=== PATIENT | female | born 1950 | race Caucasian/White ===

== ENCOUNTER 2018-03-12 06:57 | Inpatient (IN) | payer MEDICARE, BC ==
--- NOTE | 2018-03-04 19:46 | HP ---
HISTORY AND PHYSICAL: DATE OF ADMISSION/SURGERY: 03/12/18 DATE OF OFFICE VISIT: 03/04/18 SURGEON: Nat Bliss MD * (DICTATED BY SWETA TANG) PROCEDURE: Right total knee arthroplasty. CHIEF COMPLAINT: Right knee pain. HISTORY OF PRESENT ILLNESS: Ms. Fuentes is a 68-year-old female with complaints of right knee pain. She has failed conservative treatment and elected to proceed with a right total knee arthroplasty, which is scheduled for 03/12/18. PAST MEDICAL HISTORY: Hypertension, diabetes, high cholesterol, depression, and Mrgnmzy-Upgok-Wyvyg. PAST SURGICAL HISTORY: Bilateral carpal tunnel release and . CURRENT MEDICATIONS: 1. Meclizine 25 mg every 8 hours as needed. 2. Pantoprazole sodium 20 mg daily. 3. Januvia 100 mg 1 tab every day. 4. Atorvastatin calcium 10 mg daily. 5. Losartan potassium 100 mg daily. 6. Benzonatate 100 mg 3 times a day as needed for cough. 7. Citalopram hydrobromide 10 mg daily. 8. Hydrochlorothiazide 25 mg daily. 9. Metformin 500 mg 2 tabs twice daily. 10. Aspirin 81 mg daily. 11. Ibuprofen as needed. 12. Zinc 30 mg daily. ALLERGIES: To SULFA and TETANUS. FAMILY HISTORY: Diabetes, coronary artery disease, cancer, rheumatoid arthritis. SOCIAL HISTORY: She is a 68-year-old female. She lives with her . She does not smoke or use drugs. Uses occasional alcohol. REVIEW OF SYSTEMS: A complete 14-point review of systems was reviewed with the patient. It was positive for diabetes and GERD. She denies a history of DVT, PE, hepatitis, HIV, or anesthesia problems. PHYSICAL EXAMINATION GENERAL: She is a well-developed, well-nourished, in no acute distress. VITAL SIGNS: She stands 62 inches tall, weighs 209 pounds. Blood pressure 140/ 82, heart rate 60. HEENT: Normocephalic, atraumatic. NECK: Supple. No palpable lymph nodes. PULMONARY: Lungs are clear to auscultation bilaterally. CARDIO: Regular rate and rhythm. Strong S1, S2. ABDOMEN: Soft, nontender, nondistended. NEUROLOGICAL: She is alert and oriented x3. MUSCULOSKELETAL: Right lower extremity: Skin is intact. There are no open wounds or abrasions. There is a moderate joint effusion. There is a 15-degree valgus deformity. Range of motion is 10 to 120 degrees with patellofemoral crepitus. She has a 2+ dorsalis pedis pulse. She has a footdrop on the right side and has very minimal dorsiflexion. She has intact sensation. ASSESSMENT AND PLAN: Ms. Fuentes is a 68-year-old female with end-stage osteoarthritis of the right knee. She has failed conservative treatment and elected to proceed with a right total knee arthroplasty. The surgery is scheduled for 03/12/[address] Bliss discussed the risks and benefits of the surgery at today's visit and all of her questions were answered. She will follow up with Dr. Bliss 2 weeks after the surgery. SWETA TANG [id number]/[facility] #: [id number] [place]
[~2018-03-12 06:57] MED LIST: Acetaminophen TAB* 325 MG PO ONE; Buffered Lidocaine 0.9% SYRIN* 5 ML/SYR SYRINGE INTRADERM ONE; Gabapentin CAP(*) 300 MG PO ONE; Tranexamic Acid 1,000 MG in NS 0.9% 50 ML* (outpatient use) IV SCH; celeCOXIB CAP* 200 MG PO ONE
[2018-03-12] MEDS ORDERED: Bupivacaine 0.5% SDV PF* 30ML VIAL ONE ×2 (07:03→13:14)
[2018-03-12] MEDS ORDERED: Acetaminophen TAB* 325 MG ONE (07:08)
[2018-03-12] MEDS ORDERED: celeCOXIB CAP* 100 MG ONE (07:08)
[2018-03-12] MEDS ORDERED: Gabapentin CAP(*) 300 MG ONE (07:08)
[2018-03-12] MEDS ORDERED: ceFAZolin 2 GM PREMIX in ORs 2 GM/50 ML BAG IVPB ONE (07:08)
[2018-03-12] MEDS ORDERED: fentaNYL* 50 MCG/ML 2 ML VIAL (100 MCG VIAL) ONE (08:19)
[2018-03-12] MEDS ORDERED: Midazolam* 1 MG/ML 2 ML VIAL (2 MG) ONE (08:19)
[2018-03-12] MEDS ORDERED: Lidocaine 2% PF * 5 ML VIAL ONE (09:23)
[2018-03-12] MEDS ORDERED: EPHEDrine (Pressors)* 50 MG/ML VIAL ONE (09:41)
[2018-03-12] MEDS ORDERED: diPHENhydraMINE IV* 50 MG/ML 1 ml VIAL (BENADRYL) ONE (10:00)
[2018-03-12] MEDS ORDERED: DiMENhydriNATE IV* 50 MG/ML VIAL IV PUSH PRN (11:34)
[2018-03-12] MEDS ORDERED: fentaNYL* 50 MCG/ML 2 ML VIAL (100 MCG VIAL) IV PRN (11:34)
[2018-03-12] MEDS ORDERED: HYDROcodone/ACETAMIN 5-325 MG* 1 TAB PO PRN ×2 (11:34)
[2018-03-12] MEDS ORDERED: HYDROmorphone INJ1* 1 MG/ML SYRINGE IV PRN (11:34)
[2018-03-12] MEDS ORDERED: Acetaminophen TAB* 325 MG PO PRN ×2 (11:34→11:49)
[2018-03-12] MEDS ORDERED: Naloxone* 0.4 MG/ML 1 ML VIAL IV PRN (11:34)
[2018-03-12] MEDS ORDERED: Ondansetron INJ* 2 MG/ML VIAL IV PRN ×2 (11:34→11:49)
[2018-03-12] MEDS ORDERED: diPHENhydraMINE IV* 50 MG/ML 1 ml VIAL (BENADRYL) IV PRN ×2 (11:34→11:49)
[2018-03-12] MEDS ORDERED: PROCHLORPERAZINE INJ 5 MG/ML 2 ML VIAL IV PRN (11:34)
[2018-03-12] MEDS ORDERED: ROPIVACAINE 5 MG/ML 30 ML BTL (0.5%) ONE (11:43)
[2018-03-12] MEDS ORDERED: Bisacodyl SUPP* 10 MG SUPP PR PRN (11:49)
[2018-03-12] MEDS ORDERED: Magnesium Hydroxide LIQ* 30 ML UDC PO PRN (11:49)
[2018-03-12] MEDS ORDERED: Morphine VIAL* 4 MG/ML VIAL (1 ml vial) IV PRN (11:49)
[2018-03-12] MEDS ORDERED: HYDROcodone/ACETAMIN 5-325 MG* 1 TAB ONE (12:15)
--- NOTE | 2018-03-12 12:46 | RAD ---
HISTORY: s/p RTKA COMPARISONS: March 04, 2018 VIEWS: 2 , Frontal and lateral views of the right knee FINDINGS: BONE DENSITY: Normal. BONES: The patient is status post right knee arthroplasty. There is no hardware failure or osteolysis. JOINTS: The patient is status post right knee arthroplasty ALIGNMENT: There is no dislocation. SOFT TISSUES: Unremarkable. OTHER FINDINGS: None. IMPRESSION: STATUS POST RIGHT KNEE ARTHROPLASTY
[2018-03-12] MEDS ORDERED: Bupivacaine-MPF SPINAL* 7.5 MG/ML - 2ML AMP ONE (13:14)
[2018-03-12] MEDS ORDERED: Propofol* 10 MG/ML 20 ML BTL IV PUSH ONE (13:14)
[2018-03-12] MEDS ORDERED: Morphine VIAL* 10 MG/ML 1 ML VIAL ONE (13:18)
[2018-03-12] MEDS: oxyCODONE TAB* 5 MG TAB PO PRN ×2 (14:13→20:16)
--- NOTE | 2018-03-12 15:32 | PN ---
Progress Note - Progress Note Date of Service: 03/12/18 Note: resting comfortably in bed. Pain controlled with current pain meds. able to move toes/ 2+ DP pulse; hx of CMT with right foot drop. denies SOB/ calf pain; dressing c/d/i
[2018-03-12] MEDS ORDERED: Dextrose 50% Syringe 50 ML* 25 GM/50 ML SYRINGE IV PUSH PRN (16:35)
[2018-03-12] MEDS: oxyCODONE/Acetamin 5/325 MG* TAB PO PRN ×2 (16:41→23:23)
[2018-03-12] MEDS: ceFAZolin 1 GM in Dextrose (*) 1 GM/50 ML BAG IVPB SCH (16:42)
[2018-03-12] MEDS ORDERED: Warfarin TAB(*) 6 MG PO ONE (17:00)
[2018-03-12] MEDS: Insulin LISPRO* 1 UNITS UNIT SUBCUT SCH (17:33)
[2018-03-12] MEDS: Magnesium Hydroxide LIQ* 30 ML UDC PO SCH (20:18)
[2018-03-12] MEDS: Docusate CAP* 100 MG PO SCH (20:19)
--- NOTE | 2018-03-12 23:36 | CONS ---
[facility] MEDICINE CONSULTATION REPORT: DATE OF CONSULT: 03/12/18 PROVIDER: Christina Squires NP ATTENDING PHYSICIAN: Dr. Bliss. CONSULTING PHYSICIAN: Dr. Opal March (dictated by Christina Squires NP). REASON FOR CONSULT: Co-management of chronic medical conditions, hypertension, diabetes. HISTORY OF PRESENT ILLNESS: Ms. Fuentes is a 68-year-old female with a past medical history significant for hypertension, diabetes, hyperlipidemia, depression and Gegxuoj-Ofzxh-Xempn, who has been treated for complaints of right knee pain. She failed conservative treatment and elected to proceed with a right total knee arthroplasty, which was scheduled for today, 03/12/18. She denies any recent sick contacts. Denies any fever or chills. She denies any chest pain or shortness of breath. Denies any nausea, vomiting, or diarrhea. Denies any urinary frequency or dysuria. PAST MEDICAL HISTORY: Significant for: 1. Hypertension. 2. Diabetes. 3. High cholesterol. 4. Depression. 5. Uujaudi-Yzkkq-Qdukn. PAST SURGICAL HISTORY: 1. Bilateral carpal tunnel. 2. x1. CURRENT MEDICATIONS: 1. Meclizine 25 mg p.o. q.8 hours as needed. 2. Pantoprazole 20 mg p.o. daily. 3. Januvia 100 mg 1 tablet p.o. daily. 4. Atorvastatin 10 mg p.o. daily. 5. Losartan potassium 100 mg p.o. daily. 6. Benzonatate 100 mg t.i.d. as needed for cough. 7. Citalopram 10 mg p.o. daily. 8. Hydrochlorothiazide 25 mg p.o. q.a.m. 9. Metformin 500 mg 2 tablets twice daily. 10. Aspirin 81 mg daily. 11. Ibuprofen as needed. 12. Zinc 30 mg p.o. daily. ALLERGIES: She has an allergy to SULFA and TETANUS. FAMILY HISTORY: Father and mother with a history of diabetes. Father with a history of coronary artery disease. Mother with pancreatic cancer and mother with osteoarthritis. SOCIAL HISTORY: She is a 68-year-old female. She lives with her . She does not smoke or use any illicit drugs. She does report drinking 2 beers daily. Surrogate decision maker in the event the patient is unable to make her own decision is her , Alexis Fuentes. His phone number is [phone]. REVIEW OF SYSTEMS: General: There was no fever. There was no unintended weight loss. Cardiac: No chest pain or edema. Respiratory: Denies any cough or congestion. Denies any shortness of breath or orthopnea. GI: No nausea, vomiting, or diarrhea. No abdominal pain. : No hematuria or dysuria. ENT: No dysphagia. Neuro: No focal weakness or sensory loss. Psych: No depression or anxiety. Eyes: No visual complaints. Skin: No rashes or open lesions. PHYSICAL EXAM: Vitals: Blood pressure was 119/64, heart rate 54, respirations 18, O2 saturation 95% to 92% on room air, temperature was 98.0. LABORATORY DATA: WBCs on 02/24/18 were 8.3, RBCs were 4.81, hemoglobin 13.6, hematocrit was 40, platelet count was 199. INR on 03/04/18 was 0.93. Sodium on 02/24/18 was 138, potassium was 3.9, chloride was 100, carbon dioxide was 28 , BUN was 15, creatinine 0.66. Urine was positive for leukocyte esterase, urine wbc's were +2, urine rbc's were 3+, and urine squamous epithelial cells were present, bacteria was absent. The rest of the urinalysis was within normal limits. IMPRESSION AND PLAN: Ms. Fuentes is a 68-year-old female with a past medical history of hypertension, diabetes, hyperlipidemia, depression, who presented to [facility] – [place] for an elective right total knee arthroplasty with Dr. Bliss. In the immediate postoperative period, she has no complaints. Our recommendations are as follows: 1. Status post right total knee arthroplasty. Management per Orthopedics. PT/ OT per Orthopedics. 2. Hypertension. I would continue her losartan 100 mg p.o. daily. I would hold her hydrochlorothiazide at this time and resume when able when blood pressure is stable. 3. Diabetes. I would hold her metformin and Januvia at this time. We will start her on lispro sliding scale and Accu-Cheks a.c. She can resume her previous home diabetic medications on discharge. 4. Hyperlipidemia. She should continue on her atorvastatin as previously prescribed. 5. DVT prophylaxis: Per Orthopedics. 6. Code status: She is a full code. TIME SPENT: Time spent on this consultation was 45 minutes, half of that time was spent with the patient reviewing events leading thus far to her hospitalization, performing physical exam, and reviewing my plan of care. I have discussed this with my attending, Dr. Opal March; she is in agreement with my plan. CHRISTINA SQUIRES, HOME HEALTH CNA [id number]/[facility] #: [id number] [place]
[2018-03-13] MEDS: oxyCODONE TAB* 5 MG TAB PO PRN ×3 (00:38→11:44)
[2018-03-13] MEDS: ceFAZolin 1 GM in Dextrose (*) 1 GM/50 ML BAG IVPB SCH ×2 (00:46→08:57)
[2018-03-13] MEDS: oxyCODONE/Acetamin 5/325 MG* TAB PO PRN ×3 (03:49→14:01)
[2018-03-13 05:38] LABS: Hematocrit 33 % (35-47); Hemoglobin 11.2 g/dl (12.0-16.0); Mean Platelet Volume 8.7 um3 (7.4-10.4); Platelet Count 174 10^3/ul (150-450)
[2018-03-13 05:45] LABS: INR 1.12 (0.77-1.02)
[2018-03-13 05:57] LABS: EGFR Non-African American 95.7 (>60)
[2018-03-13 08:05] VITALS: BP 122/73
[2018-03-13] MEDS: Docusate CAP* 100 MG PO SCH (08:58)
[2018-03-13] MEDS: Insulin LISPRO* 1 UNITS UNIT SUBCUT SCH ×2 (08:58→11:43)
[2018-03-13] MEDS ORDERED: Vitamin THERAPEUTIC TAB PO SCH (09:00)
[2018-03-13] MEDS ORDERED: Atorvastatin* 10 MG TAB PO SCH (09:00)
[2018-03-13] MEDS ORDERED: Losartan TAB* 25 MG PO SCH (09:00)
[2018-03-13] MEDS: Magnesium Hydroxide LIQ* 30 ML UDC PO SCH (09:05)
[2018-03-13] MEDS ORDERED: Omeprazole CAP* 20 MG PO SCH (11:00)
--- NOTE | 2018-03-13 11:15 | PN ---
Progress Note - Progress Note Date of Service: 03/13/18 SOAP: Subjective: [] Objective: [] Assessment: [] Plan: []
--- NOTE | 2018-03-13 11:16 | PN ---
Progress Note - Progress Note Date of Service: 03/13/18 SOAP: Subjective: []Patient seen OOB in chair, doing well. Pain well controlled, Denies N/V or dizziness. Feels ready to go home this afternoon after PT. Objective: [] Vital Signs Temp 97.5 F 03/13/18 03:42 Pulse 50 03/13/18 08:01 Resp 20 03/13/18 09:43 BP 122/73 03/13/18 08:01 Pulse Ox 96 03/13/18 08:01 Intake & Output 03/12/18 03/13/18 03/13/18 18:59 06:59 18:59 Intake Total 1660 1335 Output Total 325 3045 175 Balance 1335 -1710 -175 Weight 207 lb Intake: IV Fluids 1300 135 ABX - CEFAZOLIN 115 LR 1300 20 Oral 360 1200 Output: Urine 125 175 Sims 200 3045 Laboratory Results - last 24 hr 03/12/18 03/12/18 03/13/18 14:19 17:16 05:29 Hgb 11.2 L Hct 33 L Plt Count 174 MPV 8.7 INR (Anticoag Therapy) Sodium Potassium Chloride Carbon Dioxide Anion Gap BUN Creatinine Est GFR ( Amer) Est GFR (Non-Af Amer) BUN/Creatinine Ratio Glucose POC Glucose (mg/dL) 175 H 260 H Calcium 03/13/18 03/13/18 03/13/18 05:29 05:29 08:03 Hgb Hct Plt Count MPV INR (Anticoag Therapy) 1.12 H Sodium 136 Potassium 3.7 Chloride 100 L Carbon Dioxide 31 Anion Gap 5 BUN 14 Creatinine 0.62 Est GFR ( Amer) 115.8 Est GFR (Non-Af Amer) 95.7 BUN/Creatinine Ratio 22.6 H Glucose 163 H POC Glucose (mg/dL) 157 H Calcium 8.7 Right knee DENISSE C/D/I calf NT and soft +DF/PF right ankle sensation intact distally RLE Assessment: []s/p RTK POD #1 Plan: []PT/OT WBAT RLE Coumadin with Lovenox bridge, 8 mg today before discharge home Dressing change this afternoon before discharge, 4x4s and DENISSE Follow up 10-14 days as scheduled with Dr. Bliss
[2018-03-13] MEDS ORDERED: Enoxaparin(*) 40 MG/0.4 ML SYR SUBCUT SCH (12:00)
[2018-03-13] MEDS ORDERED: Scopolamine 1.5 mg* PATCH TRANSDERM SCH (12:00)
[2018-03-13] MEDS ORDERED: Warfarin TAB(*) 4 MG PO ONE (15:00)
[2018-03-13] MEDS ORDERED: Pantoprazole TAB (NF) 20 MG TAB PO SCH (21:00)
--- NOTE | 2018-03-13 23:08 | OP ---
OPERATIVE REPORT: DATE OF OPERATION: 03/12/18 DATE OF : 50 SURGEON: Nat Bliss MD SHOOTER'S HELPER: SWTEA Jack Ms. did help throughout the procedure with preparation of the leg, wound retraction, manipulation of the knee and wound closure. ANESTHESIOLOGIST: Dr. Higgins. ANESTHESIA: Spinal. PRE-OP DIAGNOSIS: Severe end-stage degenerative osteoarthritis of the right knee joint. POST-OP DIAGNOSIS: Severe end-stage degenerative osteoarthritis of the right knee joint. OPERATIVE PROCEDURE: Right total knee arthroplasty. COMPLICATIONS: None. TOURNIQUET TIME: 44 minutes. SPECIMEN: Bone and cartilage from the right knee joint sent to pathology. ESTIMATED BLOOD LOSS: 200 cc. HARDWARE USED: This is Wu and Nephew cemented total knee arthroplasty hardware. For the femur, a right size 4 Legion narrow posterior stabilized femoral component. For the tibia, size 3 right tibial base plate Sabine II. For the insert, a 9 mm posterior stabilized Sabine II, size 3-4 and for the patella a 29 mm 7.5 thickness 3-peg all-poly patella. BRIEF HISTORY/INDICATION: Mr. Fuentes is a 68-year-old female with years of increasingly severe valgus deformity and osteoarthritis causing pain in the right knee. She failed conservative treatment with brace wear, ambulatory assistive devices, physical therapy, intra-articular injections and anti- inflammatories. Due to continued pain and decreased quality of life, she elected to undergo right total knee arthroplasty. Radiographs showed bone-on- bone arthritis of the hip. Informed consent was obtained from the patient. She understood the risks of the surgery included, but were not limited to bleeding, infection, damage to nearby structures, continued pain, need for further surgery, intraoperative fracture, nerve palsy, hardware failure or loosening, knee stiffness, loss of motion, stroke, heart attack, blood clot, and . She wished to proceed. INTRAOPERATIVE FINDINGS: Intraoperatively, the patient was noted to have severe end-stage arthritis with tricompartmental complete loss of cartilage. She had lateral femoral condylar hypoplasia. DESCRIPTION OF PROCEDURE: Ms. Fuentes was identified in the preanesthesia unit. Her right lower extremity was marked as the correct operative side. Informed consent was signed and placed in the chart. The patient was taken to the operating room and placed under spinal anesthesia. A Sims catheter was placed. A tourniquet was placed on the right thigh. Right lower extremity was prepped and draped in the usual sterile fashion. Preop time-out was made to correctly identify the patient's side and site. Appropriate perioperative antibiotics were given within one hour of incision. Tourniquet was inflated until tourniquet time for this procedure was 44 minutes. A midline incision was made with a 10 blade and carried down to the extensor mechanism. A new 10 blade was used to make a standard medial parapatellar arthrotomy. Patella was subluxed laterally. Electrocautery was used to subperiosteally elevate soft tissue off the superomedial tibia to the mid sagittal plane. The knee was flexed up. Anterior horn of the lateral meniscus and ACL were sharply released. A drill was used to enter the distal femur. Intramedullary distal femoral cutting guide was pinned on the distal femur. Oscillating saw was used to make the distal femoral cut. Next, the external rotation guide was pinned on the distal femur. The distal femur was sized to a size 4. Size 4 multi-cutting jig was pinned on the distal femur. Oscillating saw was used to make the appropriate 4 chamfer cuts. Next, PCL was completely released. The tibia was subluxed anteriorly. Extramedullary tibial cutting guide was pinned on the proximal tibia. Oscillating saw was used to make the proximal tibial cut perpendicular to the mechanical axis of the tibia. The tibial bone was carefully removed. The knee was brought out into full extension. A spacer block had good fit with the knee in full extension. There was medial and lateral ligamentous balancing. Flexion and extension gaps were well balanced. The knee was flexed up. Lamina winder tender was placed both medially and laterally. Any remaining meniscus was carefully removed using electrocautery. Curved osteotome was used to remove any posterior osteophytes. Tibial tray and drop kathrin were placed and once again confirmed a satisfactory tibial cut. A size 4 right narrow femoral trial was then impacted onto the distal femur and had good fit. The box for the posterior stabilized implant was prepared using a reamer and box cut osteotome. Size 3 tibial tray trial with a 9-mm insert trial was placed. The knee was taken through a range of motion. Knee had 0 to 130 degrees of flexion with satisfactory patellofemoral tracking. The patella was everted. 7 mm of patellar bone and cartilage was carefully removed using an oscillating saw. The patella was sized to a size 29. The 3 peg holes were drilled through the size 29 guide. A size 29 trial patella with 7.5 thickness was placed and the knee was taken through a range of motion. There was satisfactory patellofemoral tracking. All trials were carefully removed. The tibia was subluxed anteriorly and sized to a size 3. Proximal tibia was prepared using a size 3 keel punch. All bony cut surfaces were copiously irrigated with sterile saline and dried. Final implants were cemented into place, starting with the tibia, followed by the femur, and last the patella. A 9 mm insert trial was placed. The knee was brought out into full extension. Tourniquet was turned down at 44 minutes. The knee was copiously irrigated with sterile saline. Electrocautery was used to obtain meticulous hemostasis. Once the cement had fully cured, the insert trial was removed. Any excess cement was carefully removed from around the implants and capsule. Final insert chosen was a 9 mm posterior stabilized articular insert, size 3/4. This insert was locked into position on the tibial tray. Stability of the insert was checked and rechecked and noted to be stable. The knee was once again copiously irrigated with sterile saline. The extensor mechanism was closed using interrupted #1 Vicryls. The rest of the incision was closed in a layered fashion using 0 and 2-0 Vicryls. Skin was closed using running 3-0 nylon suture. Sterile Xeroform, 4x4's, and Webril were used to cover the incision. Mukesh wrap and cold pack were placed over this. The patient' s anesthesia was reversed without difficulty. She was taken to the PACU in stable condition. Intended weightbearing will be weightbearing as tolerated. Intended DVT prophylaxis will be Coumadin with a Lovenox bridge. [id number]/[facility] #: [id number] [place]
--- NOTE | 2018-03-16 05:53 | DS ---
DISCHARGE SUMMARY: DATE OF ADMISSION: 03/12/18 DATE OF DISCHARGE: 03/13/18 ATTENDING PHYSICIAN: Dr. Nat Bliss.* (DICTATED BY SWETA MURILLO) ADMISSION DIAGNOSIS: Advanced osteoarthritis, right knee. DISCHARGE DIAGNOSIS: Advanced osteoarthritis, right knee. SURGERY PERFORMED: Right total knee arthroplasty. HOSPITAL COURSE: The patient is a 68-year-old female, who had ongoing complaints of right knee pain. She failed conservative management and elected to proceed with right total knee arthroplasty. She was taken to the operating room under the care of Dr. Nat Bliss on the date of 03/12/18 and tolerated the right total knee arthroplasty without any complications. She progressed satisfactorily with her physical therapy and occupational therapy goals, bearing weight as tolerated on the right lower extremity. She had no medical postoperative complications while being followed by the medical in-house hospitalist service. Her pain was under excellent control and it was felt that she was stable medically and orthopedically for discharge to home on the date of 03/13/18. CONDITION ON DISCHARGE: The patient is afebrile. Her vital signs are stable. Her incision is healing without evidence of infection. Her calf is soft and nontender. She does have a mild footdrop, which has been longstanding on the right lower extremity preoperatively. Her sensation is grossly intact. PLAN: The patient will be discharged to home with outpatient physical therapy. She will continue with Coumadin for DVT prophylaxis anticoagulation. The patient was given 8 mg of Coumadin on 03/13/18. She will take 4 mg of Coumadin on 03/14/18, and 2 mg of Coumadin on 03/15/18. She will have a repeat blood draw, INR, on 03/16/18, with instructions on dosing to come from the office thereafter. She was provided with the prescription of Percocet 5/325 one to two tabs every 4 hours p.r.n. pain, #56, 0 refills. She will follow up as scheduled in 10 to 14 days in the office with Dr. Bliss. She should call if she has any problems with calf pain, swelling, incisional redness , drainage. Wound care instructions and all medication instructions have been provided in the discharge instruction sheet. SWETA MURILLO [id number]/[facility] #: [id number] [place]
[2018-03-16] MEDS ORDERED: Scopolamine PATCH Remove* 1 NOTE MISC PATCH OFF SCH (12:00)
== END 2018-03-13 15:00 | disposition home health service (06) | DRG 470 ==
LOC: AA 06:57 → SSU 11:49
PROVIDERS: ADMIT Orthopaedic Surgery Adult Reconstructive Orthopaedic Surgery; ATTEND Internal Medicine
PROC: 0SRC0J9 Replacement of Right Knee Joint with Synthetic Substitute, Cemented, Open Approach (ICD-10-PCS; principal; 2018-03-12 09:00)
DX: M17.0 Bilateral primary osteoarthritis of knee (principal); I10 Essential (primary) hypertension; E78.00 Pure hypercholesterolemia, unspecified; F32.9 Major depressive disorder, single episode, unspecified; G60.0 Hereditary motor and sensory neuropathy; M25.462 Effusion, left knee; E11.40 Type 2 diabetes mellitus with diabetic neuropathy, unspecified; K58.9 Irritable bowel syndrome, unspecified; L71.9 Rosacea, unspecified; M16.0 Bilateral primary osteoarthritis of hip; K21.9 Gastro-esophageal reflux disease without esophagitis; H90.11 Conductive hearing loss, unilateral, right ear, with unrestricted hearing on the contralateral side; E88.81 Metabolic syndrome and other insulin resistance; J30.9 Allergic rhinitis, unspecified; K57.90 Diverticulosis of intestine, part unspecified, without perforation or abscess without bleeding; E11.610 Type 2 diabetes mellitus with diabetic neuropathic arthropathy; E66.09 Other obesity due to excess calories; F41.9 Anxiety disorder, unspecified; G47.33 Obstructive sleep apnea (adult) (pediatric); M21.061 Valgus deformity, not elsewhere classified, right knee; M25.761 Osteophyte, right knee; M21.371 Foot drop, right foot; Z88.2 Allergy status to sulfonamides; Z88.7 Allergy status to serum and vaccine; Z82.49 Family history of ischemic heart disease and other diseases of the circulatory system; Z68.38 Body mass index [BMI] 38.0-38.9, adult; Z83.3 Family history of diabetes mellitus; Z82.61 Family history of arthritis; Z80.9 Family history of malignant neoplasm, unspecified; Z72.89 Other problems related to lifestyle; Q74.2 Other congenital malformations of lower limb(s), including pelvic girdle
CPT/HCPCS: 36415; 80048; 85014; 85018; 85049; 85610; 88305; 88311; A9270-GY; C1776; G8978-GP-CL; G8979-GP-CI; G8987-GO-CJ; G8988-GO-CJ; G8989-GO-CJ; J0690; J1200; J1650; J2250; J2270; J2704; J2795; J3010

== ENCOUNTER 2018-03-13 22:56 | Emergency (ER) | payer MEDICARE, BC ==
[2018-03-13] MEDS ORDERED: NS 0.9% 1000 ML* 2,000 ML IV ONE (23:36)
[2018-03-13] MEDS ORDERED: Ondansetron INJ* 2 MG/ML VIAL IV ONE (23:36)
[2018-03-13] MEDS ORDERED: Morphine VIAL* 4 MG/ML VIAL (1 ml vial) IV ONE (23:36)
--- NOTE | 2018-03-13 23:38 | ED ---
GI/ HPI - HPI Summary HPI Summary: This patient is a 68 year old female presenting [place] [facility] [place] by with a chief complaint of nausea/vomiting since approx. 1430 today. Patient had a right knee replacement surgery and was discharged today. Patient states that on the drive home, she started having nausea and vomiting. As she is unable to keep anything down, she has not taken her pain medication and her knee pain has worsened. The pain is rated 9/10 in severity. Symptoms aggravated by nothing. Symptoms alleviated by nothing. - History of Current Complaint Chief Complaint: EDNauseaVomitDiarrh Time Seen by Provider: 03/13/18 23:32 Stated Complaint: POST SURGERY/RT KNEE PAIN Hx Obtained From: Patient Onset/Duration: Started Hours Ago, Still Present Timing: Constant Severity: Moderate Current Severity: Moderate Pain Intensity: 9 Associated Signs and Symptoms: Positive: Other: - right knee pain Aggravating Factor(s): Nothing Alleviating Factor(s): Nothing - Additional Pertinent History Primary Care Physician: PAT - Allergy/Home Medications Allergies/Adverse Reactions: Allergies Allergy/AdvReac Type Severity Reaction Status Date / Time Sulfa (Sulfonamide Allergy Unknown Verified 03/13/18 23:18 Antibiotics) Reaction Details Tetanus Vaccines and Toxoid Allergy high fever Verified 03/13/18 23:18 and swollen arm PMH/Surg Hx/FS Hx/Imm Hx Previously Healthy: No Endocrine/Hematology History: Reports: Hx Diabetes Cardiovascular History: Reports: Hx Hypertension GI History: Reports: Hx Gastroesophageal Reflux Disease - ON ORAL MEDICATION FOR , Other GI Disorders - EXCESSIVE BURPING IN THE PM Musculoskeletal History: Reports: Hx Arthritis - RIGHT KNEE Denies: Hx Osteoporosis Sensory History: Reports: Hx Cataracts - BILATEAL, Hx Contacts or Glasses - GLASSES Denies: Hx Hearing Aid Opthamlomology History: Reports: Hx Cataracts - BILATEAL, Hx Contacts or Glasses - GLASSES Neurological History: Reports: Hx Nerve Disease, 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 2001-CARPAL TUNNEL [id number] Hx Anesthesia Reactions: No Infectious Disease History: No Infectious Disease History: Denies: Traveled Outside the [place] in Last 30 Days - Family History Known Family History: Positive: Hypertension - Social History Lives: With Family Alcohol Use: Daily Alcohol Amount: 2 can of beer per day Hx Substance Use: No Substance Use Type: Reports: None Hx Tobacco Use: No Smoking Status (MU): Never Smoked Tobacco Have You Smoked in the Last Year: No Review of Systems Negative: Fever Positive: Vomiting, Nausea Positive: Other - right knee pain All Other Systems Reviewed And Are Negative: Yes Physical Exam - Summary Physical Exam Summary: Appearance: Well-appearing, Well-nourished, lying in bed comfortable Skin: Warm, dry, no obvious rash Eyes: sclera anicteric, no conjunctival pallor ENT: mucous membranes moist Neck: deferred Respiratory: No signs of respiratory distress Cardiovascular: Appears well perfused, pulses are nml Abdomen: deferred Musculoskeletal: Moving all 4 extremities without obvious discomfort Neurological: Awake and alert, mentation is normal, speech is fluent and appropriate Psychiatric: affect is normal, does not appear anxious or depressed Triage Information Reviewed: Yes Vital Signs On Initial Exam: Initial Vitals Temp Pulse Resp BP Pulse Ox 99.4 F 66 16 167/64 94 03/13/18 23:16 03/13/18 23:16 03/13/18 23:16 03/13/18 23:16 03/13/18 23:16 Vital Signs Reviewed: Yes Diagnostics - Vital Signs Vital Signs Temp Pulse Resp BP Pulse Ox 03/13/18 23:16 99.4 F 66 16 167/64 94 - Laboratory Lab Statement: Any lab studies that have been ordered have been reviewed, and results considered in the medical decision making process. GIGU Course/Dx - Course Assessment/Plan: This patient is a 68 year old female presenting to [facility] accompanied by with a chief complaint of nausea/vomiting since approx. 1430 today. Patient had a right knee replacement surgery and was discharged today. Patient states that on the drive home, she started having nausea and vomiting. Bloodwork Obtained. Urinalysis Obtained. In the ED course the patient was given Ns 0.9% 2000mL IV, Morphine 10mg IV, Zofran 8mg IV, Oxycodone 10mg PO. Patient will be discharged with a dx of acute nausea/vomiting and a prescription for zofran. Patient is advised to follow up with PCP in 3 days. The patient is agreeable with this plan. - Diagnoses Provider Diagnoses: Vomiting, Post-operative pain Discharge - Sign-Out/Discharge Documenting (check all that apply): Patient Departure - Discharge Plan Condition: Improved Disposition: HOME Prescriptions: Ondansetron [Zofran Odt] 8 mg PO Q6HR PRN #12 tab.rapdis PRN Reason: Nausea Patient Education Materials: Acute Nausea and Vomiting (ED) Referrals: Tila Justin NP [Primary Care Provider] - - Billing Disposition and Condition Condition: IMPROVED Disposition: Home - Attestation Statements Document Initiated by Chele: Yes Documenting Scribe: Brian Wilson Provider For Whom Chele is Documenting (Include Credential): Jeramy Soto MD Scribe Attestation: Brian Cardozo scribed for Jeramy Soto MD on 03/16/18 at 1402. Scribe Documentation Reviewed: Yes Provider Attestation: The documentation as recorded by the Brian thomas accurately reflects the service I personally performed and the decisions made by me, Jeramy Soto MD
[2018-03-13] MEDS ORDERED: Morphine INJ* 4 MG/ML 1 ML SYRINGE (NEW SYRINGE VERSION) ONE (23:52)
[2018-03-14] MEDS ORDERED: oxyCODONE TAB* 5 MG TAB PO ONE (01:37)
[2018-03-14 02:43] VITALS: BP 144/78
== END 2018-03-14 02:42 | disposition home or self-care (01) ==
LOC: ED 22:56
DX: R11.2 Nausea with vomiting, unspecified (principal); M25.561 Pain in right knee; Z96.651 Presence of right artificial knee joint; K21.9 Gastro-esophageal reflux disease without esophagitis; F32.9 Major depressive disorder, single episode, unspecified; Z88.2 Allergy status to sulfonamides; Z88.7 Allergy status to serum and vaccine
CPT/HCPCS: 96361; 96374; 96375; 99283; A9270-GY; J2270; J2405